=== PATIENT | female | born 1995 | race Two or more races ===

== ENCOUNTER 2024-02-14 14:44 | Outpatient (CLI) | payer OTHER | END 2024-02-14 14:45 | disposition home or self-care (01) | LOC: PRENATAL 14:44 | PROVIDERS: ATTEND Obstetrics & Gynecology Maternal & Fetal Medicine | DX: O36.80X0 Pregnancy with inconclusive fetal viability, not applicable or unspecified (principal); Z36.82 Encounter for antenatal screening for nuchal translucency; Z3A.11 11 weeks gestation of pregnancy ==

== ENCOUNTER 2024-04-23 12:34 | Outpatient (CLI) | payer OTHER | END 2024-04-23 12:35 | disposition home or self-care (01) | LOC: PRENATAL 12:34 | PROVIDERS: ATTEND Obstetrics & Gynecology Maternal & Fetal Medicine | DX: O35.3XX0 Maternal care for (suspected) damage to fetus from viral disease in mother, not applicable or unspecified (principal); O44.00 Complete placenta previa NOS or without hemorrhage, unspecified trimester; Z3A.20 20 weeks gestation of pregnancy ==

== ENCOUNTER 2024-06-28 09:06 | Outpatient (CLI) | payer OTHER ==
[2024-06-28 09:56] VITALS: BP 113/71
[2024-06-28 09:57] VITALS: BP 113/71
[2024-06-28] MEDS ORDERED: PRENATAL + DHA1 EAC1 PO (10:44)
[2024-06-28] MEDS ORDERED: RINGERS SOLUTION,LACTATED 1,000 ML IV SCH (10:45)
[2024-06-28] MEDS ORDERED: SOD FERRIC GLUC COMPLX/SUCROSE 62.5 MG/5 ML AMPUL IV NR (10:45)
[2024-06-28 11:23] VITALS: BP 106/69; O2SAT 100
[2024-06-28 14:45] VITALS: BP 106/69
== END 2024-06-28 14:54 | disposition home or self-care (01) ==
LOC: OBS/DEL 09:06
PROVIDERS: ATTEND General Practice
DX: O99.013 Anemia complicating pregnancy, third trimester (principal); R42 Dizziness and giddiness; Z3A.30 30 weeks gestation of pregnancy

== ENCOUNTER → 2024-07-10 09:59 | Outpatient (CLI) | payer OTHER ==
[~2024-07-10 09:59] MED LIST: PRENATAL + DHA1 EAC1 PO
== END | disposition home or self-care (01) ==
LOC: PRENATAL 09:59
PROVIDERS: ATTEND Obstetrics & Gynecology Maternal & Fetal Medicine
DX: O26.849 Uterine size-date discrepancy, unspecified trimester (principal); O36.8199 Decreased fetal movements, unspecified trimester, other fetus; O36.60X0 Maternal care for excessive fetal growth, unspecified trimester, not applicable or unspecified; O99.019 Anemia complicating pregnancy, unspecified trimester; Z3A.33 33 weeks gestation of pregnancy

== ENCOUNTER 2024-08-16 12:15 | Outpatient (CLI) | payer OTHER ==
[2024-08-16 11:20] VITALS: BP 119/79
[2024-08-16] MEDS ORDERED: RINGERS SOLUTION,LACTATED 1,000 ML IV SCH (12:45)
[2024-08-16 15:49] VITALS: BP 124/68
[2024-08-16 16:41] VITALS: BP 124/68
[2024-08-18] MEDS ORDERED: PRENATAL TABLE1 EAC1 PO (23:34)
[2024-08-18] MEDS ORDERED: IRON236 MG PO (23:34)
[2024-08-19] MEDS ORDERED: OXYTOCIN 10 UNITS/ML VIAL ONE (01:29)
[2024-08-19] MEDS ORDERED: GENTAMICIN SULFATE 40 MG/ML VIAL ONE (01:29)
[2024-08-19] MEDS ORDERED: KETOROLAC TROMETHAMINE 30 MG VIAL ONE (02:26)
== END 2024-08-16 16:44 | disposition home or self-care (01) ==
LOC: OBS/DEL 12:15 → OB/GYN 08-18 22:45 → OBS/DEL 08-18 22:45 → LDR 08-18 22:45 → OB/GYN 08-19 01:05 → LDR 08-20 09:09
PROVIDERS: ATTEND General Practice
DX: O36.8330 Maternal care for abnormalities of the fetal heart rate or rhythm, third trimester, not applicable or unspecified (principal); O26.849 Uterine size-date discrepancy, unspecified trimester; O36.8199 Decreased fetal movements, unspecified trimester, other fetus; O36.8310 Maternal care for abnormalities of the fetal heart rate or rhythm, first trimester, not applicable or unspecified; Z3A.39 39 weeks gestation of pregnancy

== ENCOUNTER 2024-08-18 23:24 | Inpatient (IN) | payer OTHER ==
[~2024-08-18] VITALS: Ht 160 cm; Wt 77.1 kg
[2024-08-18 22:27] VITALS: BP 127/80
[2024-08-18 23:45] LABS: HEMATOCRIT 30.5 % (36.0-45.00); HEMOGLOBIN 9.7 g/dL (12.0-15.00); MEAN CORPUSCULAR HEMOGLOBIN 21.9 pg (27.00-32.0); PLATELET COUNT 376 K/uL (150-450); RED BLOOD COUNT 4.45 M/uL (4.00-6.00); RED CELL DISTRIBUTION WIDTH 17.3 % (11.5-14.5)
[2024-08-18] MEDS ORDERED: RINGERS SOLUTION,LACTATED 1,000 ML IV SCH (23:45)
[2024-08-18 23:46] LABS: URINE APPEARANCE Clear; URINE BILIRRUBIN Negative (NEGATIVE); URINE BLOOD Negative; URINE COLOR Yellow; URINE GLUCOSE Negative (NEGATIVE); URINE KETONE Negative (NEGATIVE); URINE LEUKOCYTE Trace; URINE NITRATE Negative; URINE PROTEIN Negative (NEGATIVE); URINE UROBILINOGEN 0.2 E.U./dl
[2024-08-18] MEDS ORDERED: ERYTHROMYCIN BASE OPHT 1GM EACH TUBE OP ONE (23:47)
[2024-08-18] MEDS ORDERED: OXYTOCIN 10 UNITS/ML VIAL ONE (23:47)
[2024-08-18 23:49] LABS: URINE BACTERIA 31.7 uL (0.0-1933); URINE EPITHELIAL CELLS 3.6 uL (0.0-38.8)
[2024-08-18] MEDS ORDERED: CLINDAMYCIN PHOSPHATE 150 MG/ML (900mg) ONE (23:52)
[2024-08-18 23:54] LABS: MEAN CELL VOLUME 68.4 fL (80.00-100.00)
[2024-08-18 23:55] LABS: URINE RBC 0.5 uL (0.0-20.8)
[2024-08-19 00:12] LABS: ALBUMIN 2.7 gm/dL (3.4-5.0); BILIRUBIN TOTAL 0.33 mg/dL (0.3-1.2); CALCIUM 8.5 mg/dL (8.5-10.1); CREATININE SERUM 0.59 mg/dL (0.55-1.02); GFR 119.68; GLOBULINA 3.4 G/DL (2.4-3.5); POTASSIUM 3.75 mEq/L (3.5-5.1); TOTAL PROTEIN 6.1 gm/dL (6.4-8.2)
[2024-08-19 00:26] LABS: INR 0.94; PARTIAL THROMBOPLASTIN TIME 22.8 SECONDS (22.0-34.0); PROTHROMBIN TIME 10.3 SECONDS (9.0-11.5)
[2024-08-19] MEDS ORDERED: CHLORHEXIDINE GLUCONATE 120 ML BOTTLE TOP ONE (00:45)
[2024-08-19] MEDS ORDERED: RINGERS SOLUTION,LACTATED 1,000 ML IV SCH (00:45)
[2024-08-19] MEDS ORDERED: OXYTOCIN 1,000 ML IV SCH (00:45)
[2024-08-19] MEDS ORDERED: OxyCODONE HCL/APAP UD (PERCOCET) PO PRN ×3 (00:45→13:45)
[2024-08-19] MEDS ORDERED: GENTAMICIN SULFATE 40 MG/ML VIAL IV ONE (01:00)
[2024-08-19] MEDS ORDERED: KETOROLAC TROMETHAMINE 15 MG VIAL IV SCH (01:00)
[2024-08-19] MEDS ORDERED: KETOROLAC TROMETHAMINE 30 MG VIAL IV ONE (02:30)
[2024-08-19 03:58] LABS: ABG PH 7.361 (7.35-7.45); ABG PO2 37.9 mmHg (80-100); ABG pCO2 42.5 mmHg (35-45)
[2024-08-19 03:59] LABS: BASE EXCESS -1.9 mmol/l; BICARBONATE 23.5 mmol/l (23-25); Tco2 24.8 mmol/l; o2 21 %; puncture site UMBILICAL
[2024-08-19 04:00] LABS: SaO2 69.1 %
[2024-08-19 04:01] VITALS: BP 113/72
[2024-08-19] MEDS ORDERED: KETOROLAC TROMETHAMINE 30 MG VIAL ONE (08:45)
[2024-08-19] MEDS ORDERED: DOCUSATE SODIUM 100MG CAP PO SCH (09:00)
[2024-08-19] MEDS ORDERED: SIMETHICONE 125 MG CAPSULE PO SCH (09:00)
[2024-08-19 11:50] LABS: HEMATOCRIT 31.2 % (36.0-45.00); HEMOGLOBIN 10.1 g/dL (12.0-15.00); MEAN CORPUSCULAR HGB CONC 32.3 g/dl (32.0-36.0); PLATELET COUNT 369 K/uL (150-450); RED BLOOD COUNT 4.59 M/uL (4.00-6.00); RED CELL DISTRIBUTION WIDTH 17.8 % (11.5-14.5)
[2024-08-19] MEDS ORDERED: MORPHINE SULFATE 4 MG/ML CARTRIDGE IV PRN (14:45)
[2024-08-19 16:03] VITALS: BP 119/77
[2024-08-19] MEDS ORDERED: SOD FERRIC GLUC COMPLX/SUCROSE 62.5 MG/5 ML AMPUL IV SCH (17:00)
[2024-08-19] MEDS ORDERED: KETOROLAC TROMETHAMINE 30 MG VIAL IV SCH (18:00)
[2024-08-20] VITALS: BP 111/73
[2024-08-20 08:47] VITALS: BP 121/80
[2024-08-20 16:06] VITALS: BP 120/79
[2024-08-20] MEDS ORDERED: IBUprofen 800 MG TABLET PO SCH (21:00)
[2024-08-21 00:55] VITALS: BP 115/73
[2024-08-21 08:09] VITALS: BP 138/95
[2024-08-21 13:43] VITALS: BP 133/88
[2024-08-21 16:01] VITALS: BP 134/83
[2024-08-21 20:09] VITALS: BP 122/72
[2024-08-22] VITALS: BP 126/80
[2024-08-22 08:13] VITALS: BP 121/86
== END 2024-08-22 14:44 | disposition home or self-care (01) | DRG 788 ==
LOC: LDR → SEC-K 23:24 → LDR 23:35 → OB/GYN 08-20 09:10
PROVIDERS: ADMIT Student in an Organized Health Care Education/Training Program; ATTEND Student in an Organized Health Care Education/Training Program
PROC: 4A1HXCZ Monitoring of Products of Conception, Cardiac Rate, External Approach (ICD-10-PCS; 2024-08-18)
PROC: 10D00Z1 Extraction of Products of Conception, Low, Open Approach (ICD-10-PCS; principal; 2024-08-19 07:00)
DX: O36.8330 Maternal care for abnormalities of the fetal heart rate or rhythm, third trimester, not applicable or unspecified (principal); O32.1XX0 Maternal care for breech presentation, not applicable or unspecified; O69.81X0 Labor and delivery complicated by cord around neck, without compression, not applicable or unspecified; Z3A.37 37 weeks gestation of pregnancy; Z37.0 Single live birth